=== PATIENT | female | born 1970 | race Caucasian/White ===

== ENCOUNTER 2022-03-22 15:48 | Observation (INO) ==
[2022-03-22 15:57] VITALS: BMI 29.0
[2022-03-22] MEDS ORDERED: GI COCKTAIL PO STA (16:08)
[2022-03-22 16:15] LABS: BASOPHILS # (AUTO) 0.1 K/uL (0-0.2); BASOPHILS % (AUTO) 0.6 % (0.0-3.0); EOSINOPHILS # (AUTO) 0.2 K/ul (0.0-0.7); EOSINOPHILS % (AUTO) 2.8 % (0.0-7.0); HEMATOCRIT 36.4 % (37.0-47.0); IMMATURE GRANULOCYTE % (AUTO) 0.1 % (0.0-5.0); LYMPHOCYTES # (AUTO) 2.2 K/uL (0.60-3.4); LYMPHOCYTES % (AUTO) 27.9 (10.0-50.0); MEAN CORPUSCULAR HEMOGLOBIN 28.4 pg (27.0-31.0); MEAN CORPUSCULAR VOLUME 86.1 fl (81.0-99.0); MONOCYTES # (AUTO) 0.6 K/uL (0.4-2.0); MONOCYTES % (AUTO) 7.2 (0-10); NEUTROPHILS # (AUTO) 4.8 K/ul (2.0-6.9); NEUTROPHILS % (AUTO) 61.4 % (42.2-75.2); PLATELET COUNT 302 10^3/uL (140-440); RDW COEFFICIENT OF VARIATION 13.8 % (11.6-14.8); RED BLOOD COUNT 4.23 10^6/ul (4.20-5.40); WHITE BLOOD COUNT 7.81 K/ul (4.6-10.2)
--- NOTE | 2022-03-22 16:15 | ED.PDOC ---
General ED Provider: Dr. BERNARDO KELLY Chief Complaint: Chest Pain Stated Complaint: carlie had chest pain off and on for a few days Time Seen by Provider: 03/22/22 15:50 Mode of Arrival: Walk-In Information Source: Patient Exam Limitations: No limitations Primary Care Provider: CRISTOFER BENÍTEZ MD Nursing and Triage Documentation Reviewed and Agree: Yes Does patient meet sepsis criteria?: No System Inflammatory Response Syndrome: Not Applicable Sepsis Protocol: For patient's 13 years and over: Temp is 96.8 and below OR 101 and greater Pulse >90 BPM Resp >20/minute Acutely Altered Mental Status Are patient's symptoms suggestive of a new infection, such as: -Pneumonia -Skin, Soft Tissue -Endocarditis -UTI -Bone, Joint Infection -Implantable Device -Acute Abdominal Infection -Wound Infection -Meningitis -Blood Stream Catheter Infection -Unknown Cardiovascular Complaint Exam Chest Pain Complaint/Exam Onset: Gradual Duration: several days Symptoms Are: Still present Timing: Intermittent Length of Chest Pain Episodes: min Initial Severity: Mild Current Severity: Mild Location: Reports Discrete and Midsternal Pain Radiates: Reports None Character: Reports Dull, Aching, Tightness, Burning and Squeezing Aggravating: Reports None Alleviating: Reports None Associated Signs and Symptoms: Denies Diaphoresis, Nausea, Vomiting, Fever, Palpitations, Cough, Hemoptysis, Back pain, Abdominal pain, Dizziness, Short of air, Calf pain or Calf swelling Prior Care for this Complaint: No Recent Stress Test: No Recent Echo/LV Function: No JVD Present: No Subcutaneous Emphysema Present: No Diminshed Breath Sounds: No Reproducible Chest Wall Pain: No Bilateral Pulses Present: Yes Unequal Pulses Noted: No Differential Diagnoses: ACS, Chest Wall Pain, GI Diseasae and Pulmonary Embolism Quality Indicator For Non-Traumatic Chest Pain/Syncope: EKG Performed Review of Systems Review Of Systems Constitutional: Reports No symptoms Eyes: Reports No symptoms Ears, Nose, Mouth, Throat: Reports No symptoms Respiratory: Reports No symptoms Cardiac: Reports Chest pain GI: Reports No symptoms : Reports No symptoms Musculoskeletal: Reports No symptoms Skin: Reports No symptoms Neurological: Reports No symptoms Endocrine: Reports No symptoms Hematologic/Lymphatic: Reports No symptoms All Other Systems: Reviewed and Negative [facility] Medical History Fibromyalgia History of tobacco use Social History Smoking and tobacco status: Former smoker Smokeless tobacco user: dissolvable tobacco Quit status: considering quitting Substance use type: marijuana Seatbelt use: always Helmet use: Yes Water heater temperature set < 120 degrees: Yes Working smoke detector in home: Yes Fire extinguisher in home: Yes Carbon monoxide detector in home: Yes Female Reproductive History Menstrual Hx Hysterectomy: No Hx Tubal Ligation: No Physical Exam Physical Exam Appearance: Reports Well-appearing Ill-appearing: None Pain Distress: Mild Eyes: Reports ERIC, EOMI and Conjunctiva clear ENT: Reports Ears normal, Nose normal and Oropharynx normal Neck: Supple Respiratory: Reports Airway patent, Breath sounds clear and Breath sounds equal Cardiovascular: Reports RRR, Pulses normal, No rub and No murmur GI/: Reports Soft, Nontender, No masses, Bowel sounds normal and No Organomegaly Musculoskeletal: Reports Normal strength, ROM intact, No edema and No calf tenderness Skin: Reports Warm, Dry and Normal color Neurological: Reports Sensation intact, Motor intact, Reflexes intact, Cranial nerves intact, Alert and Oriented Psychiatric: Reports Affect appropriate and Mood appropriate Critical Care Note Critical Care Note Total Critical Care Time (mins): 30 Course Course Hematology/Chemistry: 03/22/22 16:00 03/22/22 16:00 Orders, Labs, Meds: Lab Review 03/22/22 03/22/22 03/22/22 16:00 16:00 16:00 WBC 7.81 RBC 4.23 Hgb 12.0 Hct 36.4 L MCV 86.1 MCH 28.4 MCHC 33.0 RDW Coeff of Nitesh 13.8 Plt Count 302 Immature Gran % (Auto) 0.1 Neut % (Auto) 61.4 Lymph % (Auto) 27.9 [place] % (Auto) 7.2 Eos % (Auto) 2.8 Baso % (Auto) 0.6 Neut # (Auto) 4.8 Lymph # (Auto) 2.2 [place] # (Auto) 0.6 Eos # (Auto) 0.2 Baso # (Auto) 0.1 Immature Gran # (Auto) 0.0 Sodium 141.0 Potassium 3.21 L Chloride 106.1 Carbon Dioxide 26.2 Anion Gap 11.91 BUN 11.9 Creatinine 0.78 Estimated GFR (MDRD) 78.00 BUN/Creatinine Ratio 15.25 Glucose 119.0 H Calcium 9.31 Total Bilirubin 0.35 AST 32.8 ALT 34.4 Alkaline Phosphatase 169.8 H Total Creatine Kinase 60.1 Troponin I < 0.012 Total Protein 7.15 Albumin 4.19 Globulin 2.96 Albumin/Globulin Ratio 1.41 Amylase 67.2 D-Dimer 309.59 SARS-CoV-2 Ag (Rapid) 03/22/22 16:41 WBC RBC Hgb Hct MCV MCH MCHC RDW Coeff of Nitesh Plt Count Immature Gran % (Auto) Neut % (Auto) Lymph % (Auto) [place] % (Auto) Eos % (Auto) Baso % (Auto) Neut # (Auto) Lymph # (Auto) [place] # (Auto) Eos # (Auto) Baso # (Auto) Immature Gran # (Auto) Sodium Potassium Chloride Carbon Dioxide Anion Gap BUN Creatinine Estimated GFR (MDRD) BUN/Creatinine Ratio Glucose Calcium Total Bilirubin AST ALT Alkaline Phosphatase Total Creatine Kinase Troponin I Total Protein Albumin Globulin Albumin/Globulin Ratio Amylase D-Dimer SARS-CoV-2 Ag (Rapid) Negative Orders Category Date Time Status EKG-(ED ONLY) Stat CARDIO 03/22/22 16:04 Completed ED SIGN PAINTER APPRENTICE APPLIED .ONCE EMERGENCY 03/22/22 16:05 Active ED IV/MEDIPORT/POWERPORT .ONCE EMERGENCY 03/22/22 16:05 Active AMYLASE Stat LAB 03/22/22 16:00 Completed CBC W/ AUTO DIFF Stat LAB 03/22/22 16:00 Completed COMPREHENSIVE METABOLIC PANEL Stat LAB 03/22/22 16:00 Completed COVID-19 ANTIGEN TEST Stat LAB 03/22/22 16:41 Completed CREATINE KINASE Stat LAB 03/22/22 16:00 Completed D-DIMER Stat LAB 03/22/22 16:00 Completed TROPONIN I Stat LAB 03/22/22 16:00 Completed 0.9 % Sodium Chloride [Saline Flush] MEDS 03/22/22 16:04 Active 1 syr IVF PRN PRN Clonidine HCl [Catapres] MEDS 03/22/22 16:59 Discontinued 0.1 mg PO ONCE STA Mag-Al Plus//Lidocaine [Gi Cocktail] MEDS 03/22/22 16:08 Discontinued 30 ml PO ONCE STA Potassium Chloride [K-Dur] MEDS 03/22/22 16:48 Discontinued 20 meq PO ONCE STA CXR [CHEST, 1V AP ONLY] Stat RADS 03/22/22 16:04 Completed Medications Generic Name Dose Route Start Last Admin Trade Name Freq PRN Reason Stop Dose Admin Sodium Chloride 1 syr 03/22/22 16:04 0.9% Sodium Chloride 10 Ml Disp.Syrin IVF PRN PRN To flush IV Discontinued Medications Generic Name Dose Route Start Last Admin Trade Name Conchita PRN Reason Stop Dose Admin Al Hydroxide/Mg Hydroxide 30 ml 03/22/22 16:08 03/22/22 16:12 Mag-Al Plus//Lidocaine 30 Ml Btl PO 03/22/22 16:09 30 ml ONCE STA Administration Clonidine 0.1 mg 03/22/22 16:59 03/22/22 17:06 Clonidine Hcl 0.1 Mg Tablet PO 03/22/22 17:00 0.1 mg ONCE STA Administration Potassium Chloride 20 meq 03/22/22 16:48 03/22/22 17:06 Potassium Chloride 20 Meq Tab PO 03/22/22 16:49 20 meq ONCE STA Administration Vital Signs: Temp Pulse Resp BP Pulse Ox 03/22/22 17:15 69 134/88 96 03/22/22 17:00 75 9 L 126/88 95 03/22/22 16:45 80 14 150/104 H 91 L 03/22/22 16:30 75 13 149/93 H 90 L 03/22/22 16:15 88 9 L 159/99 H 94 L 03/22/22 16:00 92 H 11 L 148/96 H 94 L 03/22/22 15:49 98.1 F 96 H 18 152/98 H 97 KEATON Risk Score KEATON Risk Score: Risk Score Odds of by 30D 0 0.1 (0.1-0.2) 1 0.3 (0.2-0.3) 2 0.4 (0.3-0.5) 3 0.7 (0.6-0.9) 4 1.2 (1.0-1.5) 5 2.2 (1.9-2.6) 6 3.0 (2.5-3.6) 7 4.8 (3.8-6.1) Discharge Plan Discharge Patient Disposition: ADMITTED INPATIENT Discharge Problem: Chest pain Prescriptions: No Action omeprazole 20 mg capsule,delayed release(DR/EC) 20 mg PO BID PRN (Reason: reflux) Qty: 30 2RF duloxetine 60 mg capsule,delayed release(DR/EC) 60 mg PO DAILY Qty: 30 2RF Spiriva with HandiHaler 18 mcg Capsule, W/Inhalation Device 1 cap INHALATION DAILY 0RF pregabalin 150 mg capsule 150 mg PO TID PRN (Reason: myalgia) Qty: 90 2RF hydroxyzine HCl 25 mg tablet 25 mg PO BID PRN (Reason: anxiety) Qty: 30 0RF mupirocin calcium 2 % cream 1 applic topical BID Qty: 30 1RF Rx Instructions: daily to twice daily into the nose. ED Provider: BERNARDO FRANCO Condition: Good Physician Progress Note: right now--she is not huring--she says she only hurts when she exerts herself--she is agreeable to admission for stress test with dr villanueva[]
[2022-03-22 16:28] LABS: ALANINE AMINOTRANSFERASE 34.4 U/L (0-35); ALBUMIN 4.19 g/dL (3.5-5.0); ALKALINE PHOSPHATASE 169.8 U/L (38-126); AMYLASE 67.2 U/L (30-110); ASPARTATE AMINO TRANSFERASE 32.8 U/L (14-36); BILIRUBIN,TOTAL 0.35 mg/dL (0.2-1.3); BLOOD UREA NITROGEN 11.9 mg/dL (7-17); CALCIUM 9.31 mg/dL (8.4-10.2); CARBON DIOXIDE 26.2 mmol/L (22-30.0); CHLORIDE 106.1 mmol/L (98-107); CREATINE KINASE 60.1 U/L (30-135); CREATININE 0.78 mg/dL (0.60-1.30); POTASSIUM 3.21 mmol/L (3.5-5.1); TOTAL PROTEIN 7.15 g/dL (6.3-8.2)
--- NOTE | 2022-03-22 16:31 | DI ---
EXAM: Chest one view, frontal view only. HISTORY: Chest pain. COMPARISON: 10/21/2021. FINDINGS: The heart size is normal. There is no pulmonary vascular congestion. The lungs are clear save for calcified granulomatous changes. No pleural effusion or pneumothorax is seen. No acute os seous abnormality is identified. Clips in the upper abdomen. Since the prior study, there has been no significant interval change. IMPRESSION: No acute cardiopulmonary process.
[2022-03-22 16:46] LABS: TROPONIN I < 0.012 ng/ml (0.0000-0.120)
[2022-03-22] MEDS ORDERED: K-DUR PO STA (16:48)
[2022-03-22] MEDS ORDERED: CATAPRES PO STA (16:59)
[2022-03-22] MEDS ORDERED: ATROPINE SULFATE PFS IVP PRN (17:34)
[2022-03-22] MEDS ORDERED: NITROSTAT SL PRN ×2 (17:34→17:37)
[2022-03-22] MEDS ORDERED: TYLENOL PO PRN (17:34)
[2022-03-22] MEDS ORDERED: ATARAX PO PRN (17:40)
[2022-03-22] MEDS ORDERED: LYRICA PO PRN (17:40)
--- NOTE | 2022-03-22 17:48 | PCM ---
Chief Complaint Chief Complaint: my chest hurts whenever i exert myself History of Present Illness History of Present Illness: this is a 51 yr old lady who presented to the ed with exertional chest discomfort. This has been happening for several days. She denies any sweating, nausea but has had sob with the episodes. Review of Systems Constitutional: Reports No symptoms Eyes: Reports No symptoms Ears: Reports No symptoms Nose: Reports No symptoms Throat: Reports No symptoms Mouth: Reports No symptoms Respiratory: Reports No symptoms Cardiovascular: Reports Chest pain Gastrointestinal: Reports No symptoms Genitourinary: Reports No symptoms Neurological: Reports No symptoms Musculoskeletal: Reports Pain Skin: Reports No symptoms Immunology: Reports No symptoms Hematology: Reports No symptoms Endocrine: Reports No symptoms Psychiatric: Reports No symptoms Habits: Reports Other (vapes) Allergies Allergies Allergy/AdvReac Type Severity Reaction Status Date / Time meloxicam AdvReac Severe Palpitation Verified 03/22/22 15:59 s shellfish derived AdvReac Severe Hives Verified 03/22/22 15:59 PFSH Medical History Fibromyalgia History of tobacco use Social History Smoking and tobacco status: Former smoker Smokeless tobacco user: dissolvable tobacco Quit status: considering quitting Substance use type: marijuana Seatbelt use: always Helmet use: Yes Water heater temperature set < 120 degrees: Yes Working smoke detector in home: Yes Fire extinguisher in home: Yes Carbon monoxide detector in home: Yes Medications Medications: Medications Generic Name Dose Route Start Last Admin Trade Name Freq PRN Reason Stop Dose Admin Acetaminophen 650 mg 03/22/22 17:34 Acetaminophen 325 Mg Tablet PO Q4H PRN Mild Pain Aspirin 81 mg 03/23/22 08:30 Aspirin 81 Mg Tablet. PO DAILYWM CHELITA Atropine Sulfate 0.5 mg 03/22/22 17:34 Atropine Sulfate Inj 1 Mg/10 Ml Disp.Syrin IVP ONCE PRN Symptomatic Bradycardia Duloxetine HCl 60 mg 03/23/22 09:00 Duloxetine Hcl 30 Mg Capsule. PO DAILY CHELITA Enoxaparin Sodium 40 mg 03/23/22 09:00 Enoxaparin Sodium 40 Mg/0.4 Ml Syr SUBCUT DAILY CHELITA Hydroxyzine HCl 25 mg 03/22/22 17:40 Hydroxyzine Hcl 25 Mg Tablet PO BID PRN Anxiety Nitroglycerin 0.4 mg 03/22/22 17:34 Nitroglycerin 0.4 Mg Tab.Subl SL Q5MIN X 3 DOSES PRN Chest Pain Nitroglycerin 0.4 mg 03/22/22 17:37 Nitroglycerin 0.4 Mg Tab.Subl SL Q5MIN X 3 DOSES PRN Chest Pain Omeprazole 20 mg 03/22/22 21:00 Omeprazole 20 Mg Capsule.Dr PO BID [facility] Pregabalin 150 mg 03/22/22 17:40 Pregabalin 75 Mg Capsule PO TID PRN Spasms Sodium Chloride 1 syr 03/22/22 16:04 0.9% Sodium Chloride 10 Ml Disp.Syrin IVF PRN PRN To flush IV Sodium Chloride 1 syr 03/22/22 21:00 0.9% Sodium Chloride 10 Ml Disp.Syrin IVF Q8HR [facility] Tiotropium [place] 1 cap 03/23/22 09:00 Tiotropium [place] 18 Mcg Cap.W.Dev IH DAILY [facility] Body Composition Height: 5 ft 4 in Weight: 169 lb Body Mass Index (BMI): 29.0 Vital Signs Temperature: 98.1 F Pulse Rate: 69 Respiratory Rate: 9 Blood Pressure: 134/88 O2 Sat by Pulse Oximetry: 96 Physical Examination Appearance: Reports Well-appearing Ill-appearing: None Pain Distress: Mild Eyes: Reports ERIC, EOMI and Conjunctiva clear ENT: Reports Ears normal, Nose normal and Oropharynx normal Neck: Supple Respiratory: Reports Airway patent, Breath sounds clear and Breath sounds equal Cardiovascular: Reports RRR, Pulses normal and No rub GI/: Reports Soft, Nontender, No masses and Bowel sounds normal Musculoskeletal: Reports Normal strength, ROM intact, No edema and No calf tenderness Skin: Reports Warm, Dry and Normal color Neurological: Reports Sensation intact, Motor intact, Reflexes intact, Cranial nerves intact, Alert and Oriented Psychiatric: Reports Affect appropriate, Mood appropriate and Anxious Lab/Tests/Diagnostic Imaging Lab/Tests/Diagnostic Imaging: Lab Review 03/22/22 03/22/22 03/22/22 16:00 16:00 16:00 WBC 7.81 RBC 4.23 Hgb 12.0 Hct 36.4 L MCV 86.1 MCH 28.4 MCHC 33.0 RDW Coeff of Nitesh 13.8 Plt Count 302 Immature Gran % (Auto) 0.1 Neut % (Auto) 61.4 Lymph % (Auto) 27.9 [place] % (Auto) 7.2 Eos % (Auto) 2.8 Baso % (Auto) 0.6 Neut # (Auto) 4.8 Lymph # (Auto) 2.2 [place] # (Auto) 0.6 Eos # (Auto) 0.2 Baso # (Auto) 0.1 Immature Gran # (Auto) 0.0 Sodium 141.0 Potassium 3.21 L Chloride 106.1 Carbon Dioxide 26.2 Anion Gap 11.91 BUN 11.9 Creatinine 0.78 Estimated GFR (MDRD) 78.00 BUN/Creatinine Ratio 15.25 Glucose 119.0 H Calcium 9.31 Total Bilirubin 0.35 AST 32.8 ALT 34.4 Alkaline Phosphatase 169.8 H Total Creatine Kinase 60.1 Troponin I < 0.012 Total Protein 7.15 Albumin 4.19 Globulin 2.96 Albumin/Globulin Ratio 1.41 Amylase 67.2 D-Dimer 309.59 SARS-CoV-2 Ag (Rapid) 03/22/22 16:41 WBC RBC Hgb Hct MCV MCH MCHC RDW Coeff of Nitesh Plt Count Immature Gran % (Auto) Neut % (Auto) Lymph % (Auto) [place] % (Auto) Eos % (Auto) Baso % (Auto) Neut # (Auto) Lymph # (Auto) [place] # (Auto) Eos # (Auto) Baso # (Auto) Immature Gran # (Auto) Sodium Potassium Chloride Carbon Dioxide Anion Gap BUN Creatinine Estimated GFR (MDRD) BUN/Creatinine Ratio Glucose Calcium Total Bilirubin AST ALT Alkaline Phosphatase Total Creatine Kinase Troponin I Total Protein Albumin Globulin Albumin/Globulin Ratio Amylase D-Dimer SARS-CoV-2 Ag (Rapid) Negative Orders Category Date Time Status OBSERVATION [PLACE PATIENT OBSERVATION] .TO MEDSURG ADMISSION 03/22/22 17:34 Active (MONITORED BED) EKG-(ED ONLY) Stat CARDIO 03/22/22 16:04 Completed EKG-(IP & OP ONLY) DAILY CARDIO 03/22/22 17:45 Ordered EKG-(IP & OP ONLY) DAILY CARDIO 03/23/22 17:45 Ordered OXYGEN Routine CARDIO 03/22/22 17:35 Ordered INTAKE & OUTPUT Q8HR CARE 03/22/22 17:35 Active IP: INSERT SALINE LOCK ONCE CARE 03/22/22 17:35 Active NOTIFY PHYSICIAN OF CONSULT ONCE CARE 03/22/22 17:38 Active NOTIFY PHYSICIAN OF CONSULT ONCE CARE 03/22/22 17:39 Active TELEMETRY MONITORING TELE CARE 03/22/22 17:34 Active TELEMETRY MONITORING TELE CARE 03/22/22 17:35 Active VITAL SIGNS Q8HR CARE 03/22/22 17:35 Active PHYSICIAN CONSULTATION [CONS] Stat CONSULTS 03/22/22 17:38 Ordered ED CHEMICAL ECONOMIST APPLIED .ONCE EMERGENCY 03/22/22 16:05 Active ED IV/MEDIPORT/POWERPORT .ONCE EMERGENCY 03/22/22 16:05 Active AMYLASE Stat LAB 03/22/22 16:00 Completed CBC W/ AUTO DIFF DAILY@0600 LAB 03/23/22 06:00 Ordered CBC W/ AUTO DIFF DAILY@0600 LAB 03/24/22 06:00 Ordered CBC W/ AUTO DIFF Stat LAB 03/22/22 16:00 Completed COMPREHENSIVE METABOLIC PANEL Stat LAB 03/22/22 16:00 Completed COVID-19 ANTIGEN TEST Stat LAB 03/22/22 16:41 Completed CREATINE KINASE Q8H LAB 03/23/22 01:45 Ordered CREATINE KINASE Stat LAB 03/22/22 16:00 Completed CREATINE KINASE Timed LAB 03/22/22 22:00 Ordered D-DIMER Stat LAB 03/22/22 16:00 Completed TROPONIN I Q8H LAB 03/23/22 01:45 Ordered TROPONIN I Stat LAB 03/22/22 16:00 Completed 0.9 % Sodium Chloride [Saline Flush] MEDS 03/22/22 16:04 Active 1 syr IVF PRN PRN 0.9 % Sodium Chloride [Saline Flush] MEDS 03/22/22 21:00 Ordered 1 syr IVF Q8HR Acetaminophen [Tylenol] MEDS 03/22/22 17:34 Ordered 650 mg PO Q4H PRN Aspirin [Aspirin EC] MEDS 03/23/22 08:30 Ordered 81 mg PO DAILYWM Atropine Sulfate Inj [Atropine Sulfate Pfs] MEDS 03/22/22 17:34 Ordered 0.5 mg IVP ONCE PRN Clonidine HCl [Catapres] MEDS 03/22/22 16:59 Discontinued 0.1 mg PO ONCE STA Duloxetine HCl [Cymbalta] MEDS 03/23/22 09:00 Ordered 60 mg PO DAILY Enoxaparin Sodium [Lovenox] MEDS 03/23/22 09:00 Ordered 40 mg SUBCUT DAILY Hydroxyzine HCl [Atarax] MEDS 03/22/22 17:40 Ordered 25 mg PO BID PRN Mag-Al Plus//Lidocaine [Gi Cocktail] MEDS 03/22/22 16:08 Discontinued 30 ml PO ONCE STA Nitroglycerin [Nitrostat] MEDS 03/22/22 17:34 Ordered 0.4 mg SL Q5MIN X 3 DOSES PRN Nitroglycerin [Nitrostat] MEDS 03/22/22 17:37 Ordered 0.4 mg SL Q5MIN X 3 DOSES PRN Omeprazole [Prilosec] MEDS 03/22/22 21:00 Ordered 20 mg PO BID Potassium Chloride [K-Dur] MEDS 03/22/22 16:48 Discontinued 20 meq PO ONCE STA Pregabalin [Lyrica] MEDS 03/22/22 17:40 Ordered 150 mg PO TID PRN Tiotropium [place] [Spiriva] MEDS 03/23/22 09:00 Ordered 1 cap IH DAILY RESUSCITATION STATUS Routine OTHERS 03/22/22 17:34 Ordered CXR [CHEST, 1V AP ONLY] Stat RADS 03/22/22 16:04 Completed Medications Generic Name Dose Route Start Last Admin Trade Name Freq PRN Reason Stop Dose Admin Acetaminophen 650 mg 03/22/22 17:34 Acetaminophen 325 Mg Tablet PO Q4H PRN Mild Pain Aspirin 81 mg 03/23/22 08:30 Aspirin 81 Mg Tablet. PO DAILYWM CHELITA Atropine Sulfate 0.5 mg 03/22/22 17:34 Atropine Sulfate Inj 1 Mg/10 Ml Disp.Syrin IVP ONCE PRN Symptomatic Bradycardia Duloxetine HCl 60 mg 03/23/22 09:00 Duloxetine Hcl 30 Mg Capsule. PO DAILY CHELITA Enoxaparin Sodium 40 mg 03/23/22 09:00 Enoxaparin Sodium 40 Mg/0.4 Ml Syr SUBCUT DAILY [facility] Hydroxyzine HCl 25 mg 03/22/22 17:40 Hydroxyzine Hcl 25 Mg Tablet PO BID PRN Anxiety Nitroglycerin 0.4 mg 03/22/22 17:34 Nitroglycerin 0.4 Mg Tab.Subl SL Q5MIN X 3 DOSES PRN Chest Pain Nitroglycerin 0.4 mg 03/22/22 17:37 Nitroglycerin 0.4 Mg Tab.Subl SL Q5MIN X 3 DOSES PRN Chest Pain Omeprazole 20 mg 03/22/22 21:00 Omeprazole 20 Mg Capsule.Dr PO BID CHELITA Pregabalin 150 mg 03/22/22 17:40 Pregabalin 75 Mg Capsule PO TID PRN Spasms Sodium Chloride 1 syr 03/22/22 16:04 0.9% Sodium Chloride 10 Ml Disp.Syrin IVF PRN PRN To flush IV Sodium Chloride 1 syr 03/22/22 21:00 0.9% Sodium Chloride 10 Ml Disp.Syrin IVF Q8HR CHELITA Tiotropium [place] 1 cap 03/23/22 09:00 Tiotropium [place] 18 Mcg Cap.W.Dev IH DAILY CHELITA Discontinued Medications Generic Name Dose Route Start Last Admin Trade Name Freq PRN Reason Stop Dose Admin Al Hydroxide/Mg Hydroxide 30 ml 03/22/22 16:08 03/22/22 16:12 Mag-Al Plus//Lidocaine 30 Ml Btl PO 03/22/22 16:09 30 ml ONCE STA Administration Clonidine 0.1 mg 03/22/22 16:59 03/22/22 17:06 Clonidine Hcl 0.1 Mg Tablet PO 03/22/22 17:00 0.1 mg ONCE STA Administration Potassium Chloride 20 meq 03/22/22 16:48 03/22/22 17:06 Potassium Chloride 20 Meq Tab PO 03/22/22 16:49 20 meq ONCE STA Administration Assessment (1) Chest pain: Status: Acute Code(s): R07.9 - Chest pain, unspecified SNOMED Code(s): 93644391 Assessment: at this point she does not appear to have acute coronary syndrome but could have stable angina. Plan Plan: admit to telemetry, serial ekg and cardiac markers, continue home meds, dvt prophlyaxis, consult dr villanueva
[2022-03-22] MEDS ORDERED: PRILOSEC PO SCH (21:00)
[2022-03-22 22:21] LABS: CREATINE KINASE 49.6 U/L (30-135)
[2022-03-22 22:38] LABS: TROPONIN I < 0.012 ng/ml (0.0000-0.120)
[2022-03-23 04:56] LABS: BASOPHILS % (AUTO) 0.4 % (0.0-3.0); EOSINOPHILS # (AUTO) 0.2 K/ul (0.0-0.7); HEMATOCRIT 37.4 % (37.0-47.0); HEMOGLOBIN 12.2 g/dl (12.0-16.0); IMMATURE GRANULOCYTE % (AUTO) 0.1 % (0.0-5.0); LYMPHOCYTES # (AUTO) 2.4 K/uL (0.60-3.4); LYMPHOCYTES % (AUTO) 33.4 (10.0-50.0); MEAN CORPUSCULAR HEMOGLOBIN 28.3 pg (27.0-31.0); MEAN CORPUSCULAR HGB CONC 32.6 (31.8-35.4); MEAN CORPUSCULAR VOLUME 86.8 fl (81.0-99.0); MONOCYTES # (AUTO) 0.5 K/uL (0.4-2.0); MONOCYTES % (AUTO) 6.8 (0-10); NEUTROPHILS % (AUTO) 56.3 % (42.2-75.2); PLATELET COUNT 291 10^3/uL (140-440); RDW COEFFICIENT OF VARIATION 13.9 % (11.6-14.8); RED BLOOD COUNT 4.31 10^6/ul (4.20-5.40); WHITE BLOOD COUNT 7.03 K/ul (4.6-10.2)
[2022-03-23 05:09] LABS: BLOOD UREA NITROGEN 16.2 mg/dL (7-17); CARBON DIOXIDE 26.4 mmol/L (22-30.0); CHLORIDE 106.6 mmol/L (98-107); CREATINE KINASE 54.5 U/L (30-135); CREATININE 0.76 mg/dL (0.60-1.30); GLUCOSE 94.5 mg/dL (74-106); POTASSIUM 4.09 mmol/L (3.5-5.1); SODIUM 139.5 mmol/L (134.5-145)
[2022-03-23 05:20] LABS: TROPONIN I < 0.012 ng/ml (0.0000-0.120)
[2022-03-23] MEDS: SPIRIVA IH SCH (08:45)
[2022-03-23] MEDS: PRILOSEC PO SCH ×2 (08:47→16:33)
[2022-03-23] MEDS: ASPIRIN EC PO SCH (08:47)
[2022-03-23] MEDS: CYMBALTA PO SCH (08:47)
[2022-03-23] MEDS ORDERED: LOVENOX SUBCUT SCH (09:00)
[2022-03-23 09:06] LABS: THYROID STIMULATING HORMONE 2.72 uIU/L (0.465-4.68)
[2022-03-23] MEDS: LYRICA PO SCH ×3 (09:29→20:44)
--- NOTE | 2022-03-23 09:45 | PCM.PROG ---
Attending Provider: ATTENDING PROVIDER: Dr. LIDIA KUHN This patient is seen with Reshma Davidson, Nurse Practitioner. DATE OF SERVICE: 03/23/22 SUBJECTIVE: This 51 year old /WHITE F who presented to the ER last night with chest pain pain to left arm and extending to the neck after walking up and down the stairs. Cardiac enzymes have been normal. She has a history of positive stress test with heart cath. The patient is a smoker. She is a patient of Dr. Goodwin. REVIEW OF SYSTEMS: CONSTITUTIONAL: No night sweats. No fatigue, malaise, lethargy. No fever or chills. HEENT: Eyes: No visual changes. No eye pain. No eye discharge. ENT: No runny nose. No epistaxis. No sinus pain. No odynophagia. No congestion. RESPIRATORY: No cough, no congestion. No hemoptysis. No shortness of breath. CARDIOVASCULAR: No angina symptoms. No CHF symptoms. Chest pain with exertion. No palpitations. No orthopnea.. GASTROINTESTINAL: No abdominal pain. No nausea or vomiting. No diarrhea or constipation. No hematemesis. No hematochezia. GENITOURINARY: No urgency. No frequency. No dysuria. No hematuria. No obstructive symptoms. No discharge. No pain. No significant abnormal bleeding. MUSCULOSKELETAL: No musculoskeletal pain; no joint swelling. NEUROLOGICAL: Awake, alert, oriented to time, place and person. No headache. No neck pain. No syncope. No seizures. No dizziness. PSYCHIATRIC: Not anxious. No depression. No suicidal thoughts. No homicidal thoughts. SKIN: No rash. No lesions. No wounds. ENDOCRINE: No unexplained weight loss. No weight gain. HEMATOLOGIC/LYMPHATIC: No anemia. No purpura. No petechiae. No prolonged or excessive bleeding. No palpable lymph nodes. PHYSICAL EXAMINATION: GENERAL: The patient is awake, alert and oriented, sitting in bed in no distress. VITAL SIGNS: Temperature 97.4 F, Pulse 58, Respiratory Rate 16, BP 126/76, Pulse Ox 98% HEENT: Head normocephalic, atraumatic. Eyes: Extraocular muscles are intact. Pupils are equal, round and reactive to light and accommodation. Ears: No lesions. Nose appeared normal. Throat: No exudate or erythema. NECK: Supple. No JVD, no carotid bruit. No lymphadenopathy or thyromegaly. LUNGS: Clear to auscultation. Percussion note normal. Chest symmetrical. HEART: S1, S2, no S3. No murmurs. No cyanosis or clubbing. No ascites. Pulses: Dorsalis pedis and posterior tibial pulses +1 to +2 both sides. ABDOMEN: Soft. Non-tender. Bowel sounds active. No CVA tenderness. No mass felt. EXTREMITIES: No edema. Full range of motion of all extremities, equal. NEUROLOGIC: No focal deficit. Cranial nerves II through XII are grossly intact. No headache. No double vision. SKIN: Not dry. Intact. Turgor-normal. LYMPHATIC: No palpable lymph nodes/no lymphedema. MUSCULOSKELETAL: Normal joints with no swelling. Muscle tone is normal. LAB REVIEW: 03/23/22 04:50 03/23/22 04:50 03/23/22 04:50: WBC 7.03, RBC 4.31, Hgb 12.2, Hct 37.4, MCV 86.8, MCH 28.3, MCHC 32.6, RDW Coeff of Nitesh 13.9, Plt Count 291, Immature Gran % (Auto) 0.1, Neut % (Auto) 56.3, Lymph % (Auto) 33.4, [place] % (Auto) 6.8, Eos % (Auto) 3.0, Baso % (Auto) 0.4, Neut # (Auto) 4.0, Lymph # (Auto) 2.4, [place] # (Auto) 0.5, Eos # (Auto) 0.2, Baso # (Auto) 0.0, Immature Gran # (Auto) 0.0 03/23/22 04:50: Sodium 139.5, Potassium 4.09, Chloride 106.6, Carbon Dioxide 26.4, Anion Gap 10.59, BUN 16.2, Creatinine 0.76, Estimated GFR (MDRD) 80.00, BUN/Creatinine Ratio 21.31, Glucose 94.5, Calcium 9.40, Total Creatine Kinase 54.5, Troponin I < 0.012 03/22/22 22:05: Total Creatine Kinase 49.6, Troponin I < 0.012 03/22/22 16:41: SARS-CoV-2 Ag (Rapid) Negative 03/22/22 16:00: D-Dimer 309.59 03/22/22 16:00: WBC 7.81, RBC 4.23, Hgb 12.0, Hct 36.4 L, MCV 86.1, MCH 28.4, MCHC 33.0, RDW Coeff of Nitesh 13.8, Plt Count 302, Immature Gran % (Auto) 0.1, Neut % (Auto) 61.4, Lymph % (Auto) 27.9, [place] % (Auto) 7.2, Eos % (Auto) 2.8, Baso % (Auto) 0.6, Neut # (Auto) 4.8, Lymph # (Auto) 2.2, [place] # (Auto) 0.6, Eos # (Auto) 0.2, Baso # (Auto) 0.1, Immature Gran # (Auto) 0.0 03/22/22 16:00: Sodium 141.0, Potassium 3.21 L, Chloride 106.1, Carbon Dioxide 26.2, Anion Gap 11.91, BUN 11.9, Creatinine 0.78, Estimated GFR (MDRD) 78.00, BUN/Creatinine Ratio 15.25, Glucose 119.0 H, Calcium 9.31, Total Bilirubin 0.35, AST 32.8, ALT 34.4, Alkaline Phosphatase 169.8 H, Total Creatine Kinase 60.1, Troponin I < 0.012, Total Protein 7.15, Albumin 4.19, Globulin 2.96, Albumin/Globulin Ratio 1.41, Amylase 67.2 ASSESSMENT: 1. Chest pain 2. Smoker 3. History of hypertension 4. Dyslipidemia 4. Family history of CAD PLAN: 1. T4, TSH, Lipids and A1c 2. Discontinue Lovenox 3. 2D echo 4. Walking Stress echo Plan and coordination of the patient's care discussed in the presence of Stoker Mechanic and nurse. SCRIBED BY: FERNANDO ANDINO Technical Support Manager scribed while in presence of service performed by Dr. Grover/Reshma Davidson APRN on 03/23/22 ([id number])
--- NOTE | 2022-03-23 09:49 | CONS ---
DATE OF CONSULTATION: 03/23/22 REASON FOR CONSULTATION/HISTORY OF PRESENT ILLNESS: This 51 year old /WHITE F who presented to the ER last night with chest pain pain to left arm and extending to the neck after walking up and down the stairs. Cardiac enzymes have been normal. She has a history of positive stress test with heart cath. The patient is a smoker. She is a patient of Dr. Goodwin. REVIEW OF SYSTEMS: CONSTITUTIONAL: No night sweats. No fatigue, malaise, lethargy. No fever or chills. HEENT: Eyes: No visual changes. No eye pain. No eye discharge. ENT: No sinus drainage. No epistaxis. No sinus pain. No sore throat. No odynophagia. No ear pain. No congestion. RESPIRATORY: No cough, no congestion. No hemoptysis. No shortness of breath. CARDIOVASCULAR: No angina symptoms. No CHF symptoms. Chest pain with exertion. No palpitations. No orthopnea. GASTROINTESTINAL: No abdominal pain. No nausea or vomiting. No diarrhea or constipation. No hematemesis. No hematochezia. GENITOURINARY: No urgency. No frequency. No dysuria. No hematuria. No obstructive symptoms. No discharge. No pain. No significant abnormal bleeding. MUSCULOSKELETAL: No musculoskeletal pain. No joint swelling. NEUROLOGICAL: No headache. No neck pain. No syncope. No seizures. No dizziness. PSYCHIATRIC: Not anxious. No depression. No suicidal thoughts. No homicidal thoughts. SKIN: No rash. No lesions. No wounds. ENDOCRINE: No unexplained weight loss. No weight gain. HEMATOLOGIC/LYMPHATIC: No anemia. No purpura. No petechiae. No prolonged or excessive bleeding. No palpable lymph nodes. MEDICATIONS: Spiriva with HandiHaler 18mcg one cap inhalation daily Hydroxyzine HCL 25mg PO BID PRN Omeprazole 20mg PO BID PRN Mupirocin calcium one application Topical BID Duloxetine 60mg PO daily Pregabalin 150mg PO TID PRN ALLERGIES: Meloxicam Shellfish derived PAST MEDICAL HISTORY: Smoker Fibromyalgia Neuropathy Headaches History of hypertension History of dyslipidemia PAST SURGICAL HISTORY: Cholecystectomy Foot surgery SOCIAL/PERSONAL/FAMILY HISTORY: The patient lives in [place], works in [place]. Former smoker for past 30 years. Now vapes times one year. Family History: Father has CAD, NC at 70. PHYSICAL EXAMINATION: VITAL SIGNS: Temperature 97.4, pulse 58,blood pressure 126/76, respiratory rate 16 and Oxygen saturation 98% HEENT: Head normocephalic, atraumatic. Eyes: Extraocular muscles are intact. Pupils are equal, round and reactive to light and accommodation. Ears: No lesions. Nose appeared normal. Throat: No exudate or erythema. NECK: Supple. No JVD, no carotid bruit. No lymphadenopathy or thyromegaly. LUNGS: Clear to auscultation. Percussion note normal. Chest symmetrical. HEART: S1, S2, no S3. No murmurs. No cyanosis or clubbing. No ascites. Pulses: Dorsalis pedis and posterior tibial pulses +1 to +2 bilaterally. ABDOMEN: Soft. Nontender. Bowel sounds active. No CVA tenderness. No mass felt. EXTREMITIES: No edema. Full range of motion of all extremities, equal. NEUROLOGIC: No focal deficit. Cranial nerves II through XII are grossly intact. No headache, no double vision or headache. SKIN: Not dry. Intact. Turgor - normal. LYMPHATIC: No palpable lymph nodes/no lymphedema. MUSCULOSKELETAL: Normal joints with no swelling. Muscle tone is normal. ASSESSMENT: 1. Chest pain 2. Smoker 3. History of hypertension 4. Dyslipidemia 4. Family history of CAD RECOMMENDATIONS: 1. T4, TSH, Lipids and A1c 2. Discontinue Lovenox 3. 2D echo 4. Walking Stress echo MTDD
[2022-03-23] MEDS ORDERED: LIPITOR PO SCH (21:00)
[2022-03-24] MEDS: PRILOSEC PO SCH (05:40)
[2022-03-24 06:20] LABS: BASOPHILS # (AUTO) 0.1 K/uL (0-0.2); BASOPHILS % (AUTO) 0.6 % (0.0-3.0); EOSINOPHILS # (AUTO) 0.2 K/ul (0.0-0.7); EOSINOPHILS % (AUTO) 2.4 % (0.0-7.0); HEMATOCRIT 36.8 % (37.0-47.0); IMMATURE GRANULOCYTE % (AUTO) 0.2 % (0.0-5.0); LYMPHOCYTES # (AUTO) 2.6 K/uL (0.60-3.4); LYMPHOCYTES % (AUTO) 31.7 (10.0-50.0); MEAN CORPUSCULAR HEMOGLOBIN 28.4 pg (27.0-31.0); MEAN CORPUSCULAR HGB CONC 32.6 (31.8-35.4); MONOCYTES # (AUTO) 0.5 K/uL (0.4-2.0); MONOCYTES % (AUTO) 6.5 (0-10); NEUTROPHILS # (AUTO) 4.8 K/ul (2.0-6.9); NEUTROPHILS % (AUTO) 58.6 % (42.2-75.2); PLATELET COUNT 301 10^3/uL (140-440); RDW COEFFICIENT OF VARIATION 13.9 % (11.6-14.8); RED BLOOD COUNT 4.23 10^6/ul (4.20-5.40); WHITE BLOOD COUNT 8.18 K/ul (4.6-10.2)
[2022-03-24 06:49] LABS: BLOOD UREA NITROGEN 17.4 mg/dL (7-17); CALCIUM 9.2 mg/dL (8.4-10.2); CARBON DIOXIDE 26.9 mmol/L (22-30.0); CHLORIDE 103.7 mmol/L (98-107); CREATININE 0.76 mg/dL (0.60-1.30); GLUCOSE 94.4 mg/dL (74-106); POTASSIUM 3.99 mmol/L (3.5-5.1); SODIUM 140.2 mmol/L (134.5-145)
[2022-03-24 06:57] LABS: CREATINE KINASE 57.6 U/L (30-135)
[2022-03-24 07:14] LABS: TROPONIN I < 0.012 ng/ml (0.0000-0.120)
--- NOTE | 2022-03-24 07:50 | PCM.PROG ---
Date Seen by Provider: 03/23/22 Time Seen by Provider: 22:10 Subjective: No acute chest pain or SOB Objective: Vitals: T=97.6 F, P=63, R=16, LT=423/81, SPO2=96 HEENT: []wnl Neck: []supple Lungs: []chest was clear CVS: []rrr Abdomen: []benign Extremities: []no acute abnormality Neurological: []non-focal Skin: []normal color, no acute abnormality. Lab/Tests/Diagnostic Imaging: [] (1) Chest pain: Status: Acute Code(s): R07.9 - Chest pain, unspecified SNOMED Code(s): 44746508 Plan: Continue Tx regimen. 2. Stress Cardiac Echo 03/24/[address] Grover. Please see Dr Grover's consult notes.
[2022-03-24] MEDS: LYRICA PO SCH (09:09)
[2022-03-24] MEDS: ASPIRIN EC PO SCH (09:09)
[2022-03-24] MEDS: CYMBALTA PO SCH (09:09)
[2022-03-24] MEDS: SPIRIVA IH SCH (09:11)
[2022-03-24] MEDS ORDERED: ZOFRAN 4 MG/2 ML IVP ONE (09:19)
--- NOTE | 2022-03-24 10:29 | CONS ---
DATE OF SERVICE: 03/23/22 SUBJECTIVE: The patient was seen and examined with the Nurse Practitioner. Cardiovascular examination S1, S2, no S3. No murmurs. No JVD. No carotid bruit. No lymphadenopathy. Pulse +2 bilaterally. No ascites. EKG is sinus rhythm. LVH with strain type of pattern noted. The patient had cardiac cath done in 2017. The report was reviewed. The patient had a stress sestamibi which was borderline positive. The coronary angiogram in 2017 in [place] was negative coronary arteries. The patient has severe dyslipidemia which hasn't been treated, she is also smoking with family history. The patient is going to be started on Statin. Explained about the diet. The patient will undergo stress echo sestamibi in the morning. Echo done today with normal LV Contractility, malini valvular structures. Her chest pain is equivocal atypical for coronary insufficiency. CAD discussed with her with symptoms and how to modify the risk factors. CONDITION: stable. MTDD
[2022-03-24 14:21] VITALS: BP 107/72; TEMP 97.3
--- NOTE | 2022-03-24 14:27 | NM ---
Cardiac Stress Test HISTORY: Chest pain. COMPARISON: None of this type. TECHNIQUE: Resting: The patient was injected with 10.5 mCi of 99m Tc Sestamibi (Cardiolite) intravenously after which a "resting" SPECT study of the heart was performed. Stress: The patient was stressed using a Konrad protocol and at the appropriate time injected with 30 .6 mCi of 99m Tc Sestamibi (Cardiolite)99m technetium Sestamibi (Cardiolite) after which a "stress" S PECT study of the heart was performed. Gated images of the heart were also obtained to assess wall m otion and calculate ejection fraction. For details of the stress protocol employed, reference is mad e to the separate report of the performing physician. FINDINGS: The stress perfusion images demonstrate a generally uniform distribution of activity in th e left ventricular myocardium. The resting perfusion images demonstrate no evidence of significant redistribution/ischemia. The left ventricular ejection fraction (LVEF) is 90 %. The left ventricular wall motion is within normal limits. IMPRESSION: 1. Left ventricular myocardial perfusion is within normal limits. 2. The left ventricular ejection fraction (LVEF) is 90 %. 3. The left ventricular wall motion is within normal limits.
--- NOTE | 2022-03-24 15:40 | PCM.PROG ---
Date Seen by Provider: 03/24/22 Time Seen by Provider: 15:38 Subjective: Denies chest pain. No complaints Objective: Vitals: T=97.3 F, P=75, R=14, RY=076/72, SPO2=95 Patient appears comfortable. NAD HEENT: [] Neck: [] Lungs: [] Chest clear BS equal. CVS: []RRR. No peripheral edema Abdomen: [] Extremities: [] Neurological: [] Skin: [] Lab/Tests/Diagnostic Imaging: [] (1) Chest pain: Status: Acute Code(s): R07.9 - Chest pain, unspecified SNOMED Code(s): 56886995 Assessment: Stress test normal today. Plan: Will discharge patient on lipitor. Patient to follow up with Dr Goodwin in 2 days.
--- NOTE | 2022-03-24 15:46 | PCM.DC ---
Final Diagnosis: nonspecific chest pain Physical Exam Appearance: Well-appearing Ill-appearing: None Pain Distress: None Eyes: Not Examined ENT: Not Examined Neck: Not Examined Respiratory: Airway patent, Breath sounds clear and Breath sounds equal Cardiovascular: RRR, No rub and No murmur GI/: Not Examined Musculoskeletal: Normal strength, ROM intact and No edema Skin: Warm, Dry and Normal color Neurological: Sensation intact, Motor intact, Cranial nerves intact, Alert and Oriented Psychiatric: Affect appropriate and Mood appropriate (1) Chest pain: Status: Acute Code(s): R07.9 - Chest pain, unspecified SNOMED Code(s): 44765802 (2) Dyslipidemia (high LDL; low HDL): Status: Acute Code(s): E78.5 - Hyperlipidemia, unspecified SNOMED Code(s): 039793354 Reason for Hospitalization: Patient admitted with chest pain. Stress test was negative. Patient found to have dyslipidemia and was placed on lipitor at discharge. Prognosis/Condition at Discharge: Condition was good at discharge. Medications at Discharge: Ambulatory Orders Medication Instructions Recorded tiotropium bromide 18 mcg capsule 1 cap INHALATION DAILY 05/13/21 with inhalation device (Spiriva with HandiHaler) hydroxyzine HCl 25 mg tablet 25 mg PO BID PRN #30 tab 05/19/21 omeprazole 20 mg capsule,delayed 20 mg PO BID PRN #30 cap 09/01/21 release duloxetine 60 mg capsule,delayed 60 mg PO DAILY #30 cap 03/17/22 release pregabalin 150 mg capsule 150 mg PO TID PRN #90 cap 03/20/22 Discharge Disposition: Home Plan: Patient to follow up with Dr Goodwin in 2 days.
--- NOTE | 2022-03-25 11:58 | ECHO2D ---
Date of Exam: 03/23/2022 Ordering Physician: DR. CRISTOFER BENÍTEZ Room #: [id number] Reason for Echo: CHEST PAIN, COPD, SOB M-Mode Normal Adult Results LV Dimensions Normal Adult Results AoV Opening excursions >1.6 >1.6 LVEDD-base- 3.5-5.8 3.7 Ao root dimensions 2.0-3.7 2.9 LVESD-base- 3.1-4.6 L. Atrium dimensions 1.9-3.8 3.6 Post. Wall thickness 0.8-1.1 1.0 IV septum (thickness) 0.7-1.2 1.1 Post. Wall excursion 0.72-1.3 NORMAL Septal motion NORMAL Systolic motion R. Ventricular cavity 1.5-2.0 NORMAL LVEF 60% 74% Paradoxical septal wall motion NORMAL 2-D : 2-D M Mode Echocardiogram was performed using apical four chamber and left parasternal long and short axis views. Mitral, tricuspid and aortic valves appear to be normal. Contractility of the left ventricle seems to be normal, so is the cavity size. Left atrial cavity size and aortic root appear to be normal. There is no pericardial effusion. There is no thrombus noted in the left ventricle or left atrial cavity. M-MODE: MV: NORMAL AV: NORMAL TV: NORMAL PV: CHAMBER SIZE: NORMAL WALL MOTION: NORMAL PERICARDIUM: NORMAL INTERPRETATION: 1. NORMAL 2 "D" "M" MODE ECHO MTDD
--- NOTE | 2022-03-25 12:01 | ECHOSTRESS ---
Date of Exam: 03/24/2022 Ordering Physician: DR. CRISTOFER BENÍTEZ Reason for Echo: CHEST PAIN, SOB, COPD, STRESS TEST--NO ISCHEMIA M-Mode Normal Adult Results LV Dimensions Normal Adult Results AoV Opening excursions >1.6 LVEDD-base- 3.5-5.8 Ao root dimensions 2.0-3.7 LVESD-base- 3.1-4.6 L. Atrium dimensions 1.9-3.8 Post. Wall thickness 0.8-1.1 IV septum (thickness) 0.7-1.2 Post. Wall excursion 0.72-1.3 Septal motion Systolic motion R. Ventricular cavity 1.5-2.0 LVEF 60% Paradoxical septal wall motion 2-D: NORMAL LEFT VENTRICLE CONTRACTILITY--RESTING AND POST EXERCISE M-MODE: MV: AV: TV: PV: CHAMBER SIZE: WALL MOTION:NORMAL LEFT VENTRICLE CONTRACTILITY--RESTING AND POST EXERCISE PERICARDIUM: INTERPRETATION: 1. NORMAL LEFT VENTRICLE CONTRACTILITY--RESTING AND POST EXERCISE MTDD
--- NOTE | 2022-03-25 12:17 | STECHOSEST ---
Date of Test: 03/24/2022 Ordering Physician: DR. CRISTOFER BENÍTEZ Occupation: PRIMARY TEACHER Reason for Exam: CHEST PAIN, SOB, COPD Smoking History: VAPE/QUIT CIGARETTES 1 1/2 YR AGO Height: 64" Weight: 169 LBS Target Heart Rate: 142/165 Current Medications: DULOXETINE, SPIRIVA Target Heart Rate: 142/165 Resting EKG: SINUS RHYTHM/ LEFT VENTRICLE HYPERTROPHY I STRAIN PATTERN S-T SEGMENT STAGE MPH/GRADE HEART RATE BPM BLOOD PRESSURE mmhg RHYTHM +/- ELEVATION DEPRESSION SYMPTOMS At Rest 70 BPM 116/68 MMHG SR X NONE 1 1.7/10% 130 BPM 132/70 MMHG SR X NONE 2 2.5/12% 3 3.4/14% 4 4.2/16% 5 5.0/18% Immediately after 147 BPM SR X SOB, CHEST PAIN Minutes Post Exercise 1" 90 BPM SR X NONE Minutes Post Exercise 5" 75 BPM 122/60 MMHG SR X NONE Total Time: 3:47 Maximum Heart Rate Reached: 142 BPM Reason for Termination: SHORT OF AIR/ CHEST PAIN 95% Oxygen saturation on room air with exercises Mets 6.6 INTERPRETATION 1. TEST POSITIVE FOR ISCHEMIC ST-T WAVE CHANGES (BORDERLINE ABNORMAL ST-T WAVE CHANGES) 2. CHEST PAIN WITH EXERCISE/ RELIEVED WITH REST 3. ONE RUN OF SVT-- 6 BEATS WITH RATE 150 BPM POST EXERCISE 4. BLOOD PRESSURE RESPONSE ADEQUATE LEFT VENTRICLE CONTRACTILITY NORMAL RESTING AND POST EXERCISE SESTAMIBI TO FOLLOW MTDD
--- NOTE | 2022-03-26 10:42 | CONS ---
DATE OF SERVICE: 03/24/22 CONSULT FOLLOWUP SUBJECTIVE: The patient is up and about for past couple of days in the hospital now. Chest pain noted in the hospital. REVIEW OF SYSTEMS: CONSTITUTIONAL: No night sweats. No fatigue, malaise, lethargy. No fever or chills. HEENT: Eyes: No visual changes. No eye pain. No eye discharge. ENT: No runny nose. No epistaxis. No sinus pain. No sore throat. No odynophagia. No ear pain. No congestion. RESPIRATORY: No cough, no congestion. No hemoptysis. CARDIOVASCULAR: No angina symptoms. No CHF symptoms. No atypical chest pain for CAD. No palpitations. No shortness of breath. GASTROINTESTINAL: No abdominal pain. No nausea or vomiting. No diarrhea or constipation. No hematemesis. No hematochezia. GENITOURINARY: No urgency. No frequency. No dysuria. No hematuria. No obstructive symptoms. No discharge. No pain. No significant abnormal bleeding. MUSCULOSKELETAL: No musculoskeletal pain. No joint swelling. No arthritis. NEUROLOGICAL: No headache. No neck pain. No syncope. No seizures. No dizziness. PSYCHIATRIC: Not anxious. No depression. No suicidal thoughts. No homicidal thoughts. SKIN: No rash. No lesions. No wounds. ENDOCRINE: No unexplained weight loss. No weight gain. HEMATOLOGIC/LYMPHATIC: No anemia. No purpura. No petechiae. No prolonged or excessive bleeding. No palpable lymph nodes. PHYSICAL EXAMINATION: VITAL SIGNS: Temperature 96, pulse 65, respiratory rate 16, blood pressure 120/78 and pulse ox 96% on room air. HEENT: Head normocephalic, atraumatic. Eyes: Extraocular muscles are intact. Pupils are equal, round and reactive to light and accommodation. Ears: No lesions. Nose appeared normal. Throat: No exudate or erythema. NECK: Supple. No JVD, no carotid bruit. No lymphadenopathy or thyromegaly. LUNGS: Clear to auscultation. Percussion note normal. Chest symmetrical. HEART: S1, S2, no S3. No murmur. No cyanosis or clubbing. No ascites. Pulses: Dorsalis pedis and posterior tibial pulses +1 to +2 bilaterally. ABDOMEN: Soft. Nontender. Bowel sounds active. No CVA tenderness. No mass felt. EXTREMITIES: No edema. Full range of motion of all extremities, equal. NEUROLOGIC: No focal deficit. Cranial nerves II through XII are grossly intact. No headache, no double vision or headache. SKIN: Not dry. Intact. Turgor - normal. LYMPHATIC: No palpable lymph nodes/no lymphedema. MUSCULOSKELETAL: Normal joints with no swelling. Muscle tone is normal. LABS: Hgb 12.2, hct 37, WBC 7,000 normal differential, creatinine 0.7, BUN 16, potassium 4. Glucose 94. The patient's cardiac markers are negative. Troponin negative. TSH normal. Lipid profile and Triglycerides 219. Cholesterol 277. HDL 49, LDL calculated 184. The patient had stress echo performed which was borderline positive for ischemia ST-T wave change. The patient had chest pain but the chest pain was described by her on breathing hard when she was on the treadmill. As soon as she stopped the treadmill test within few seconds her chest pain was practically gone. The patient did not have any arms pain, no sweating. It is to be noted that the patient has St-T wave change on EKG more like a strain pattern. The patient's blood pressure response was normal. LV contractility on echo at rest and post exercise was normal. Stress sestamibi was reported as normal with normal ejection fraction. 2D M echo also showed normal valves and normal LV contractility. ASSESSMENT: 1. Chest pain seems to be noncardiac considering the results of the tests performed. 2. Severe dyslipidemia, untreated 3. History of smoking, vaping 4. History of heart disease RECOMMENDATIONS: 1. Counseling for smoking done. 2. The patient has sedentary lifestyle advised to walk on regular basis and lose weight as BMI is 29 3. Severe dyslipidemia should be treated with Statin, Atorvastatin 40mg PO daily. Side effects of Atorvastatin discussed in detail including nausea, liver profile, rhabdomyolysis, etc 4. Chest pain is equivocal on admission, during the stay in the hospital the patient walked around with no ST-T wave change or any chest pain. Stress test was equivocal for ST-T wave changed. Chest pain was not consistent with angina type of pain during the stress test. LV contractility was normal at rest and post exercise and stress sestamibi nuclear scan was negative. Considering all that the patient doesn't seem to have significant coronary artery disease probability for that is very low. 5. The patient was explained that is she continues to have pain to go to the nearest emergency room. 6. Advised to take baby Aspirin a day 7. Non-HDL goal showed by 100 8. LDL goal should be 70 Thanks for referral. MTDD
--- NOTE | 2022-03-26 10:42 | PN ---
Initial consultation 03/23/22: Level 5 03/24/22: Extensive. MTDD
== END 2022-03-24 15:50 | disposition home or self-care (01) ==
LOC: ED 15:48 → MEDSURG A 15:48
PROVIDERS: ADMIT Family Medicine; ATTEND Surgery
DX: Z86.79 Personal history of other diseases of the circulatory system; Z87.891 Personal history of nicotine dependence; E78.5 Hyperlipidemia, unspecified; Z20.822 Contact with and (suspected) exposure to COVID-19; Z51.81 Encounter for therapeutic drug level monitoring; R07.9 Chest pain, unspecified; Z79.899 Other long term (current) drug therapy; R06.02 Shortness of breath